=== PATIENT | female | born 2000 | race African-American/Black ===

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

== ENCOUNTER 2021-08-04 15:57 | Emergency (ER) | payer OTHER ==
[~2021-08-04] VITALS: Ht 149.9 cm; Wt 59.0 kg
[2021-08-04 15:57] VITALS: BP 155/97
[2021-08-04 16:29] LABS: URINE BILIRUBIN NEGATIVE (Negative); URINE BLOOD 3+ (Negative); URINE CLARITY CLOUDY; URINE COLOR RED; URINE GLUCOSE-RANDOM* TRACE (Negative); URINE KETONES 1+ (Negative); URINE PROTEIN (DIPSTICK) 2+ (Negative); URINE SPECIFIC GRAVITY >= 1.030 (1.005-1.035)
[2021-08-04 16:32] LABS: URINE LEUKOCYTES-REFLEX 2+ (Negative); URINE NITRITE-REFLEX POSITIVE (Negative)
[2021-08-04 16:46] LABS: SQUAMOUS 0-3 Few /LPF (0-3)
[2021-08-04 16:47] LABS: BACTERIA-REFLEX 1-9 Few /HPF (None Seen); CASTS None Seen /LPF (None Seen); CRYSTALS None Seen /LPF (None Seen); URINE RBC >20 Many /HPF (NONE SEEN); URINE WBC-REFLEX 0-5 Rare /HPF (0-5)
[2021-08-04 17:19] LABS: ABSOLUTE NEUTROPHILS 2.7 thou/uL (1.4-8.2); BASOPHILS 0.9 % (0.0-2.0); EOSINOPHILS 2.1 % (0.0-3.0); HEMATOCRIT 39.7 % (37.0-47.0); HEMOGLOBIN 12.8 gm/dL (12.0-15.0); LYMPHOCYTES 43.3 % (24.0-44.0); MCH 27.5 pg (26.0-34.0); MCHC 32.2 g/dL (28.0-37.0); MCV 85.3 fL (80.0-100.0); MONOCYTES 6.3 % (1.0-8.0); PLATELET COUNT 383 thou/uL (150-400); POLYS 47.4 % (36.0-66.0); RBC 4.66 mil/uL (4.20-5.00); RDW 12.9 % (10.5-14.5); WBC 5.7 thou/uL (4.0-11.0)
[2021-08-04 17:25] LABS: CALCIUM 9.5 mg/dL (8.5-10.1); CREATININE 0.8 mg/dL (0.6-1.0); POTASSIUM 4.1 mmol/L (3.5-5.1)
[2021-08-04 17:31] LABS: ALBUMIN 3.6 g/dL (3.4-5.0); TOTAL PROTEIN 7.2 g/dL (6.4-8.2)
[2021-08-04] MEDS ORDERED: BACTRIM DS TAB1 EACH PO (18:10)
== END 2021-08-04 18:29 | disposition home or self-care (01) ==
LOC: ER 15:57
PROVIDERS: Emergency Medicine; Nurse Practitioner
DX: N93.9 Abnormal uterine and vaginal bleeding, unspecified (principal); N39.0 Urinary tract infection, site not specified